=== PATIENT | female | born 1975 | race Caucasian/White ===

== ENCOUNTER 2018-07-14 11:48 | Emergency (ER) | payer OTHER, MEDICAID ==
[~2018-07-14] VITALS: Ht 160 cm; Wt 88.9 kg
[2018-07-14] MEDS ORDERED: PHENERGAN 25 MG25 M1 PO ×2 (11:56→14:09)
[2018-07-14 12:20] LABS: ABSOLUTE BASOPHILS 0.1 thou/uL (0.0-0.2); ABSOLUTE EOSINOPHILS 0.1 thou/uL (0.0-0.7); ABSOLUTE MONOCYTES 0.5 thou/uL (0.0-1.2); ABSOLUTE NEUTROPHILS 12.7 thou/uL (1.6-8.1); BASOPHILS 0.6 %; EOSINOPHILS 0.6 %; HEMATOCRIT 46.3 % (37.0-47.0); HEMOGLOBIN 15.8 gm/dL (12.0-15.0); LYMPHOCYTES 13.1 %; MCH 30.3 pg (26.0-34.0); MCHC 34.2 g/dL (28.0-37.0); MCV 88.7 fL (80.0-100.0); MONOCYTES 3.3 %; MPV 8.7 fl. (7.2-11.1); NUCLEATED RBCS 0 /100WBC; PLATELET COUNT* 286 thou/uL (150-400); POLYS 82.4 %; RBC 5.22 mil/uL (4.20-5.00); RDW-CV 12.8 % (10.5-14.5); WBC 15.5 thou/uL (4.0-11.0)
[2018-07-14 12:54] LABS: ALBUMIN 3.9 g/dL (3.4-5.0); ALKALINE PHOSPHATASE 95 U/L (46-116); ANION GAP 15 mmol/L (7-16); BUN 14 mg/dL (7-18); CALCIUM 9.1 mg/dL (8.5-10.1); CHLORIDE 107 mmol/L (98-107); CO2 23 mmol/L (21-32); CREATININE 1.1 mg/dL (0.6-1.3); GLUCOSE 154 mg/dL (70-99); LIPASE 104 U/L (73-393); POTASSIUM 4.5 mmol/L (3.5-5.1); SGOT 12 U/L (15-37); SGPT 17 U/L (30-65); SODIUM 145 mmol/L (136-145); TOTAL BILIRUBIN 0.3 mg/dL (<0.1-1.0); TOTAL PROTEIN 7.4 g/dL (6.4-8.2); TROPONIN-I LEVEL <0.06 ng/mL (<0.06)
[2018-07-14 13:07] LABS: INFLUENZA A ANTIGEN None Detected (None Detect); INFLUENZA B ANTIGEN None Detected (None Detect)
[2018-07-14] MEDS ORDERED: ULTRAM 50MG TAB50 MG PO (13:50)
[2018-07-14] MEDS ORDERED: ZOFRAN ODT4 MG SUBLING (13:50)
[2018-07-14] MEDS ORDERED: VISTARIL 25 MG25 M1 PO (13:50)
[2018-07-14] MEDS ORDERED: ZESTORETIC 20-1 EACH PO (14:00)
[2018-07-14 14:11] VITALS: BP 155/60
--- NOTE | 2018-07-14 16:52 | EKG ---
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1975 Requested By: Jesse Calderon Order Number: [id number] MD: Vahid Barros Measurements Intervals [place] Rate: 90 P: 7 ID: 153 QRS: 52 QRSD: 87 T: 30 QT: 385 QTc: 471 Interpretive Statements Sinus rhythm Low voltage, precordial leads Borderline repolarization abnormality Baseline wander in lead(s) I,II,III,aVR,aVL,aVF,V1,V2,V3 No previous ECG available for comparison Electronically Signed On 07-14-2018 16:52:27 CDT by Vahid Barros [email or web address] <ELECTRONICALLY SIGNED> By: Vahid Barros MD, FACC 07/14/18 1652 1200 1200 Vahid Barros MD, [facility] /EPI
== END 2018-07-14 14:12 | disposition home or self-care (01) ==
LOC: M.ERS 11:48
PROVIDERS: Family Medicine
DX: F41.9 Anxiety disorder, unspecified (principal); R11.2 Nausea with vomiting, unspecified; I10 Essential (primary) hypertension; Z86.73 Personal history of transient ischemic attack (TIA), and cerebral infarction without residual deficits

== ENCOUNTER 2019-03-03 23:14 | Emergency (ER) | payer OTHER, MEDICAID ==
[~2019-03-03] VITALS: Ht 160 cm; Wt 78.0 kg
[~2019-03-03 23:14] MED LIST: PHENERGAN 25 MG25 M1 PO; ULTRAM 50MG TAB50 MG PO; VISTARIL 25 MG25 M1 PO; ZESTORETIC 20-1 EACH PO; ZOFRAN ODT4 MG SUBLING
[2019-03-04 00:10] LABS: ABSOLUTE BASOPHILS 0.1 thou/uL (0.0-0.2); ABSOLUTE EOSINOPHILS 0.2 thou/uL (0.0-0.7); ABSOLUTE LYMPHOCYTES 3.5 thou/uL (0.8-5.3); ABSOLUTE MONOCYTES 0.5 thou/uL (0.0-1.2); ABSOLUTE NEUTROPHILS 4.2 thou/uL (1.6-8.1); EOSINOPHILS 2.5 %; HEMATOCRIT 42.9 % (37.0-47.0); HEMOGLOBIN 14.7 gm/dL (12.0-15.0); LYMPHOCYTES 41.6 %; MCH 30.1 pg (26.0-34.0); MCHC 34.3 g/dL (28.0-37.0); MCV 87.6 fL (80.0-100.0); MONOCYTES 5.4 %; MPV 7.6 fl. (7.2-11.1); NUCLEATED RBCS 0 /100WBC; PLATELET COUNT* 251 thou/uL (150-400); POLYS 49.5 %; RDW-CV 12.9 % (10.5-14.5); WBC 8.5 thou/uL (4.0-11.0)
[2019-03-04 00:19] LABS: CREATININE 0.9 mg/dL (0.6-1.3); POTASSIUM 3.7 mmol/L (3.5-5.1)
[2019-03-04 00:29] LABS: ALBUMIN 3.6 g/dL (3.4-5.0); TOTAL BILIRUBIN 0.4 mg/dL (<0.1-1.0); TOTAL PROTEIN 6.9 g/dL (6.4-8.2)
[2019-03-04] MEDS ORDERED: LISINOPRIL-HCT1 EACH PO (01:32)
[2019-03-04 02:11] LABS: AMP/METHAMP Negative (Negative); BARBITURATES Negative (Negative); BENZODIAZEPINES Negative (Negative); COCAINE Negative (Negative); METHADONE Negative (Negative); OPIATES Negative (Negative); PCP Negative (Negative); THC POSITIVE (Negative)
[2019-03-04] MEDS ORDERED: ZOFRAN ODT4 MG PO (02:26)
[2019-03-04 02:35] VITALS: BP 152/81
--- NOTE | 2019-03-04 15:50 | EKG ---
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 : 1975 Requested By: Sonam Parsons Order Number: [id number] MD: Vahid Barros Measurements Intervals [place] Rate: 88 P: 38 [place]: 177 QRS: 61 QRSD: 90 T: 38 QT: 383 QTc: 464 Interpretive Statements Sinus rhythm Borderline T abnormalities, anterior leads Compared to ECG 07/14/2018 12:00:42 T-wave abnormality now present Electronically Signed On 03-04-2019 15:49:42 MANAGER CARDIAC by Vahid Barros [email or web address] <ELECTRONICALLY SIGNED> By: Vahid Barros MD, [facility] 03/04/19 1549 21 21 Vahid Barros MD, FACC /EPI
== END 2019-03-04 02:35 | disposition home or self-care (01) ==
LOC: M.ERS 23:14
PROVIDERS: Personal Emergency Response Attendant
DX: I16.0 Hypertensive urgency (principal); R42 Dizziness and giddiness; I10 Essential (primary) hypertension; Z86.73 Personal history of transient ischemic attack (TIA), and cerebral infarction without residual deficits; Z79.899 Other long term (current) drug therapy

== ENCOUNTER 2020-01-28 12:50 | Inpatient (IN) | payer OTHER ==
[~2020-01-28] VITALS: Ht 160 cm; Wt 79.4 kg
--- NOTE | ~2020-01-28 | PROC ---
[facility] [address] [place] [address] PROCEDURE REPORT Name: ELSI LUNDBERG Room: [address] IN M.R.#: [id number] Admission: 01/28/20 Attend Phys: Parag Leavitt, Discharge: Date of : [birth year] Report #: [id number] THIS REPORT FOR: //name// cc: FAM - No family physician/PCP FAM - No family physician/PCP ~ THIS REPORT FOR: //name// For GI report, please see the Provation report in Perceptive 7 content. By: 1016Medical Records Staff GREGORIA /DEBORA
[~2020-01-28 12:50] MED LIST changes: +LISINOPRIL-HCT1 EACH PO; +ZOFRAN ODT4 MG PO
[2020-01-28 12:56] VITALS: BP 155/95
[2020-01-28] MEDS ORDERED: VISTARIL 25 MG25 M1 PO (12:57)
[2020-01-28 13:16] LABS: ABSOLUTE BASOPHILS 0.1 thou/uL (0.0-0.2); ABSOLUTE LYMPHOCYTES 2.7 thou/uL (0.8-5.3); ABSOLUTE MONOCYTES 0.9 thou/uL (0.0-1.2); ABSOLUTE NEUTROPHILS 14.2 thou/uL (1.6-8.1); BASOPHILS 0.8 %; EOSINOPHILS 0.1 %; HEMATOCRIT 47.8 % (37.0-47.0); HEMOGLOBIN 16.8 gm/dL (12.0-15.0); LYMPHOCYTES 15.2 %; MCH 31.6 pg (26.0-34.0); MCHC 35.2 g/dL (28.0-37.0); MONOCYTES 5.1 %; MPV 7.2 fl. (7.2-11.1); NUCLEATED RBCS 0 /100WBC; PLATELET COUNT* 388 thou/uL (150-400); POLYS 78.8 %; RBC 5.31 mil/uL (4.20-5.00); RDW-CV 14.1 % (10.5-14.5)
[2020-01-28 13:46] LABS: CREATININE 1.8 mg/dL (0.6-1.3); POTASSIUM 3.2 mmol/L (3.5-5.1)
[2020-01-28 13:57] LABS: ALBUMIN 4.4 g/dL (3.4-5.0); MAGNESIUM 2.1 mg/dL (1.8-2.4); TOTAL BILIRUBIN 0.7 mg/dL (<0.1-1.0); TOTAL PROTEIN 8.2 g/dL (6.4-8.2)
[2020-01-28 15:41] VITALS: BP 94/62
[2020-01-28 16:00] VITALS: BP 94/55
[2020-01-28 16:37] LABS: CALCIUM 9.9 mg/dL (8.5-10.1); CREATININE 1.9 mg/dL (0.6-1.3); POTASSIUM 3.2 mmol/L (3.5-5.1)
[2020-01-28 17:43] LABS: URINE BILIRUBIN NEGATIVE (Negative); URINE BLOOD NEGATIVE (Negative); URINE CLARITY CLEAR; URINE COLOR YELLOW; URINE GLUCOSE-RANDOM NEGATIVE (Negative); URINE KETONES NEGATIVE (Negative); URINE LEUKOCYTES-REFLEX NEGATIVE (Negative); URINE NITRITE-REFLEX NEGATIVE (Negative); URINE PROTEIN 2+ (Negative); URINE UROBILINOGEN 0.2 E.U./dl (0.2-1.0)
[2020-01-28 17:49] LABS: HYALINE CASTS 4-10 Moderate /LPF (None Seen); SQUAMOUS >10 Many /LPF (0-3)
[2020-01-28 17:50] LABS: BACTERIA-REFLEX 1-9 Few /HPF (None Seen); URINE WBC-REFLEX 0-5 Rare /HPF (0-5)
[2020-01-28 17:51] LABS: AMP/METHAMP Negative (Negative); BARBITURATES Negative (Negative); BENZODIAZEPINES Negative (Negative); COCAINE Negative (Negative); CRYSTALS None Seen /LPF (None Seen); METHADONE Negative (Negative); OPIATES Negative (Negative); PCP Negative (Negative); THC POSITIVE (Negative)
[2020-01-28 17:52] LABS: MUCUS None Seen strn/LPF (None Seen); URINE RBC None Seen /HPF (0-2)
[2020-01-28 20:00] VITALS: BP 100/60
[2020-01-29] VITALS: BP 99/52
[2020-01-29 04:00] VITALS: BP 98/60
[2020-01-29 07:30] VITALS: BP 94/58
[2020-01-29 07:52] LABS: MCH 31.4 pg (26.0-34.0); MCHC 34.8 g/dL (28.0-37.0); MCV 90.3 fL (80.0-100.0); MPV 6.8 fl. (7.2-11.1); RBC 4.1 mil/uL (4.20-5.00); RDW-CV 13.9 % (10.5-14.5); WBC 12.9 thou/uL (4.0-11.0)
[2020-01-29 07:56] LABS: HEMOGLOBIN 12.9 gm/dL (12.0-15.0)
[2020-01-29 08:04] LABS: ALBUMIN 3.2 g/dL (3.4-5.0); CALCIUM 7.6 mg/dL (8.5-10.1); CREATININE 1.4 mg/dL (0.6-1.3); PHOSPHORUS* 2.4 mg/dL (2.5-4.9); POTASSIUM 3.9 mmol/L (3.5-5.1); TOTAL BILIRUBIN 0.4 mg/dL (<0.1-1.0); TOTAL PROTEIN 5.9 g/dL (6.4-8.2)
[2020-01-29 11:57] VITALS: BP 113/78
--- NOTE | 2020-01-29 12:12 | EKG ---
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
[2020-01-29 16:06] VITALS: BP 98/71
[2020-01-29 20:00] VITALS: BP 117/74
[2020-01-30] VITALS: BP 105/73
[2020-01-30 04:00] VITALS: BP 100/53
[2020-01-30 05:11] LABS: MCH 31.9 pg (26.0-34.0); MCHC 35.1 g/dL (28.0-37.0); MCV 90.9 fL (80.0-100.0); MPV 7.1 fl. (7.2-11.1); RBC 4.07 mil/uL (4.20-5.00); RDW-CV 13.7 % (10.5-14.5); WBC 9.2 thou/uL (4.0-11.0)
[2020-01-30 05:48] LABS: ALBUMIN 3.2 g/dL (3.4-5.0); CALCIUM 7.9 mg/dL (8.5-10.1); CREATININE 1.2 mg/dL (0.6-1.3); MAGNESIUM 2.1 mg/dL (1.8-2.4); TOTAL BILIRUBIN 0.3 mg/dL (<0.1-1.0); TOTAL PROTEIN 5.7 g/dL (6.4-8.2)
[2020-01-30 08:00] VITALS: BP 126/84
[2020-01-30 16:58] VITALS: BP 153/89
[2020-01-30 19:30] VITALS: BP 142/84
[2020-01-31 00:39] VITALS: BP 127/96
[2020-01-31 05:25] LABS: HEMATOCRIT 36.2 % (37.0-47.0); HEMOGLOBIN 12.6 gm/dL (12.0-15.0); MCH 31.3 pg (26.0-34.0); MCHC 34.9 g/dL (28.0-37.0); MCV 89.5 fL (80.0-100.0); MPV 7.4 fl. (7.2-11.1); RBC 4.04 mil/uL (4.20-5.00); RDW-CV 13.8 % (10.5-14.5)
[2020-01-31 05:45] LABS: ALBUMIN 3.2 g/dL (3.4-5.0); CALCIUM 7.8 mg/dL (8.5-10.1); CREATININE 1.1 mg/dL (0.6-1.3); MAGNESIUM 1.9 mg/dL (1.8-2.4); POTASSIUM 3.7 mmol/L (3.5-5.1); TOTAL BILIRUBIN 0.4 mg/dL (<0.1-1.0); TOTAL PROTEIN 5.7 g/dL (6.4-8.2)
[2020-01-31 10:15] VITALS: BP 152/90
[2020-01-31 17:31] VITALS: BP 171/91
[2020-01-31 20:17] VITALS: BP 140/91
[2020-02-01 05:03] LABS: HEMATOCRIT 35.5 % (37.0-47.0); HEMOGLOBIN 12.5 gm/dL (12.0-15.0); MCH 31.5 pg (26.0-34.0); MCHC 35.1 g/dL (28.0-37.0); MCV 89.6 fL (80.0-100.0); MPV 7.7 fl. (7.2-11.1); RBC 3.96 mil/uL (4.20-5.00); RDW-CV 13.5 % (10.5-14.5); WBC 10.2 thou/uL (4.0-11.0)
[2020-02-01 05:30] LABS: BUN 17 mg/dL (7-18); CHLORIDE 108 mmol/L (98-107); HDL CHOLESTEROL 29 mg/dL (>40); POTASSIUM 3.9 mmol/L (3.5-5.1); TOTAL BILIRUBIN 0.3 mg/dL (<0.1-1.0); TOTAL PROTEIN 5.7 g/dL (6.4-8.2); TRIGLYCERIDE 133 mg/dL (<150); VLDL 27 mg/dL (<40)
[2020-02-01 05:31] LABS: ALBUMIN 3.2 g/dL (3.4-5.0); ALKALINE PHOSPHATASE 62 U/L (46-116); ANION GAP 7 mmol/L (7-16); CALCIUM 7.9 mg/dL (8.5-10.1); CHOLESTEROL 170 mg/dL (<200); CO2 27 mmol/L (21-32); CREATININE 1.2 mg/dL (0.6-1.3); GLUCOSE 111 mg/dL (70-99); LDL CHOLESTEROL 115 mg/dL (<100); SGOT 13 U/L (15-37); SGPT 30 U/L (30-65); SODIUM 142 mmol/L (136-145); TC:HDL 5.9 Ratio (Not establshd)
[2020-02-01 05:35] LABS: SERUM ASSESSMENT Clear
[2020-02-01 07:15] VITALS: BP 147/71
[2020-02-01] MEDS ORDERED: FISH OIL 1,0001 EAC9 PO (09:18)
[2020-02-01] MEDS ORDERED: PROTONIX40 M2 PO (09:18)
[2020-02-01] MEDS ORDERED: CO Q-10100 M1 PO (09:18)
[2020-02-01] MEDS ORDERED: ZESTRIL10 MG PO (09:18)
[2020-02-01] MEDS ORDERED: REGLAN 10 MG TA10 MG PO (09:18)
[2020-02-01 09:29] VITALS: BP 147/71
[2020-02-01] MEDS ORDERED: ERYTHROMYCIN250 M1 PO (10:36)
[2020-02-01] MEDS ORDERED: ATIVAN0.5 M1 PO ×2 (10:36→15:48)
--- NOTE | 2020-02-01 16:06 | PATH ---
[facility] [address] [place] [address] PATHOLOGY RPT PROCEDURE Name: ELSI HERNANDEZ Room: [address] IN .R.#: [id number] Admission: 01/28/20 Date of : [birth year] Discharge: 02/01/20 Report #: [id number] Path Case #: [id number] [facility] Accession Number: [id number] . 01 Material submitted: . small bowel - SMALL BOWEL BIOPSY FOR DIARRHEA . 01 Clinical history: . UNTRACTABLE VOMITING, CHEST PAIN . 02 Diagnosis: Small bowel biopsy: - Focal, superficial fresh hemorrhage in otherwise normal small intestinal mucosa. (BRENDA:denise; 02/01/2020) QMS 02/01/2020 1325 Local . 02 Electronically signed: . Tai Saucedo MD, Pathologist NPI- [id number] . 01 Gross description: . The specimen is received in formalin, labeled "Elsi Hernandez, small bowel biopsy for diarrhea". Received are three segments of pale kurtz soft tissue ranging in size from 0.4 to 0.6 cm in maximum dimensions. The specimen is submitted entirely in cassette A1. (CAA; 01/31/2020) QAC/QAC 01/31/2020 1010 Local . 02 Pathologist provided ICD-10: R11.10, R07.9 . 02 CPT . 950799 Specimen Comment: A courtesy copy of this report has been sent to [phone] Specimen Comment: [phone] Specimen Comment: Report sent to / DR ROSENBAUM Performed at: [address], [place] [id number] MD Corona uBrgos MD Phone: [phone] Performed at: 02 [facility] [address], [place], [place] [id number] MD Tai Saucedo MD Phone: [phone]
== END 2020-02-01 16:03 | disposition home or self-care (01) | DRG 391 ==
LOC: M.ERS 12:50 → M.2W 15:17 → M.TBA-ER 15:17 → M.2W 15:55 → M.ORTHSURG 01-31 19:38
PROVIDERS: Emergency Medicine Emergency Medical Services; Internal Medicine; ADMIT Family Medicine; ATTEND Family Medicine
PROC: 0DB78ZX Excision of Stomach, Pylorus, Via Natural or Artificial Opening Endoscopic, Diagnostic (ICD-10-PCS; principal; 2020-01-30)
PROC: 0DB98ZX Excision of Duodenum, Via Natural or Artificial Opening Endoscopic, Diagnostic (ICD-10-PCS; principal; 2020-01-30)
DX: K29.70 Gastritis, unspecified, without bleeding (principal); N17.0 Acute kidney failure with tubular necrosis; R65.10 Systemic inflammatory response syndrome (SIRS) of non-infectious origin without acute organ dysfunction; K31.84 Gastroparesis; K21.00 Gastro-esophageal reflux disease with esophagitis, without bleeding; I10 Essential (primary) hypertension; E86.0 Dehydration; E87.6 Hypokalemia; Z20.828 Contact with and (suspected) exposure to other viral communicable diseases; Z86.73 Personal history of transient ischemic attack (TIA), and cerebral infarction without residual deficits; Z82.49 Family history of ischemic heart disease and other diseases of the circulatory system; Z28.21 Immunization not carried out because of patient refusal

== ENCOUNTER 2020-07-18 18:49 | Observation (INO) | payer OTHER ==
[~2020-07-18] VITALS: Ht 160 cm; Wt 72.4 kg
[~2020-07-18 18:49] MED LIST changes: +ATIVAN0.5 M1 PO; +CO Q-10100 M1 PO; +ERYTHROMYCIN250 M1 PO; +FISH OIL 1,0001 EAC9 PO; +PROTONIX40 M2 PO; +REGLAN 10 MG TA10 MG PO; +ZESTRIL10 MG PO
[2020-07-18 18:54] VITALS: BP 196/102
[2020-07-18] MEDS ORDERED: REGLAN10 MG PO (19:02)
[2020-07-18 19:24] LABS: HEMATOCRIT 45.7 % (37.0-47.0); HEMOGLOBIN 15.4 gm/dL (12.0-15.0); MCH 29.9 pg (26.0-34.0); MCHC 33.8 g/dL (28.0-37.0); MCV 88.5 fL (80.0-100.0); MPV 7.4 fl. (7.2-11.1); NUCLEATED RBCS 0 /100WBC; PLATELET COUNT* 339 thou/uL (150-400); RBC 5.16 mil/uL (4.20-5.00); RDW-CV 14.1 % (10.5-14.5); WBC 17.1 thou/uL (4.0-11.0)
[2020-07-18 19:34] LABS: CALCIUM 9.7 mg/dL (8.5-10.1); CREATININE 1.1 mg/dL (0.6-1.3); POTASSIUM 3.6 mmol/L (3.5-5.1)
[2020-07-18 19:37] LABS: APTT 27.8 Seconds (25.0-31.3); PROTIME 10.6 Seconds (9.20-11.50)
[2020-07-18 19:48] LABS: ALBUMIN 4.4 g/dL (3.4-5.0); CK-MB MASS 0.5 ng/mL (<0.5-3.6); MAGNESIUM 1.9 mg/dL (1.8-2.4); TOTAL BILIRUBIN 0.5 mg/dL (<0.1-1.0); TOTAL PROTEIN 8.7 g/dL (6.4-8.2)
[2020-07-18 20:18] LABS: ABSOLUTE LYMPHOCYTES 1.9 thou/uL (0.8-5.3); ABSOLUTE MONOCYTES 0.7 thou/uL (0.0-1.2); ABSOLUTE NEUTROPHILS 14.5 thou/uL (1.6-8.1)
[2020-07-18 20:19] LABS: PLATELET ESTIMATE ADEQUATE
[2020-07-18 23:30] VITALS: BP 138/76
[2020-07-18 23:40] VITALS: BP 124/66
[2020-07-19 04:45] VITALS: BP 123/68
[2020-07-19 08:00] VITALS: BP 124/76
[2020-07-19] MEDS ORDERED: PHENERGAN 25 MG25 M1 PO (09:51)
[2020-07-19] MEDS ORDERED: ONDANSETRON HCL4 M2 PO (09:51)
--- NOTE | 2020-07-19 10:18 | EKG ---
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
[2020-07-19 14:34] VITALS: BP 124/76
== END 2020-07-19 15:16 | disposition home or self-care (01) ==
LOC: M.ERS 18:49 → M.TBA-ER 22:34 → M.2W 23:39
PROVIDERS: Family Medicine; ADMIT Family Medicine; ATTEND Family Medicine
DX: R11.2 Nausea with vomiting, unspecified (principal); R10.9 Unspecified abdominal pain; R79.0 Abnormal level of blood mineral; Z20.822 Contact with and (suspected) exposure to COVID-19; R07.89 Other chest pain; I16.0 Hypertensive urgency; Z88.5 Allergy status to narcotic agent; Z79.899 Other long term (current) drug therapy; Z86.73 Personal history of transient ischemic attack (TIA), and cerebral infarction without residual deficits

== ENCOUNTER 2020-09-23 17:45 | Inpatient (IN) | payer OTHER ==
[~2020-09-23] VITALS: Ht 160 cm; Wt 81.6 kg
[~2020-09-23 17:45] MED LIST changes: +ONDANSETRON HCL4 M2 PO; +REGLAN10 MG PO
[2020-09-23 17:54] VITALS: BP 163/102
[2020-09-23 18:20] LABS: HEMATOCRIT 45.8 % (37.0-47.0); HEMOGLOBIN 15.7 gm/dL (12.0-15.0); MCH 30.4 pg (26.0-34.0); MCHC 34.3 g/dL (28.0-37.0); MCV 88.7 fL (80.0-100.0); MPV 7.5 fl. (7.2-11.1); NUCLEATED RBCS 0 /100WBC; PLATELET COUNT* 366 thou/uL (150-400); RBC 5.17 mil/uL (4.20-5.00); RDW-CV 13.7 % (10.5-14.5); WBC 18.1 thou/uL (4.0-11.0)
[2020-09-23 18:42] LABS: ABSOLUTE LYMPHOCYTES 1.3 thou/uL (0.8-5.3); ABSOLUTE MONOCYTES 0.5 thou/uL (0.0-1.2); ABSOLUTE NEUTROPHILS 16.3 thou/uL (1.6-8.1); ALBUMIN 4.4 g/dL (3.4-5.0); CALCIUM 9.9 mg/dL (8.5-10.1); CREATININE 1.5 mg/dL (0.6-1.3); PLATELET ESTIMATE ADEQUATE; POTASSIUM 4.4 mmol/L (3.5-5.1); TOTAL BILIRUBIN 0.3 mg/dL (<0.1-1.0); TOTAL PROTEIN 8.3 g/dL (6.4-8.2)
[2020-09-23 21:05] LABS: URINE BILIRUBIN NEGATIVE (Negative); URINE BLOOD 1+ (Negative); URINE COLOR YELLOW; URINE GLUCOSE-RANDOM NEGATIVE (Negative); URINE KETONES TRACE (Negative); URINE LEUKOCYTES-REFLEX TRACE (Negative); URINE NITRITE-REFLEX NEGATIVE (Negative); URINE PROTEIN 3+ (Negative); URINE SPECIFIC GRAVITY 1.025 (1.005-1.030); URINE UROBILINOGEN 0.2 E.U./dl (0.2-1.0)
[2020-09-23 21:06] LABS: URINE CLARITY SL CLOUDY
[2020-09-23 21:23] LABS: AMP/METHAMP Negative (Negative); BARBITURATES Negative (Negative); BENZODIAZEPINES Negative (Negative); COCAINE Negative (Negative); METHADONE Negative (Negative); OPIATES Negative (Negative); PCP Negative (Negative); THC POSITIVE (Negative)
[2020-09-23 21:48] LABS: BACTERIA-REFLEX >30 Many /HPF (None Seen); CASTS None Seen /LPF (None Seen); CRYSTALS None Seen /LPF (None Seen); MUCUS 4-6 Moderate strn/LPF (None Seen); SQUAMOUS 4-10 Moderate /LPF (0-3); TRANSITIONAL EPITHEL CELL 0-3 Few /LPF (None Seen); URINE RBC 3-10 Few /HPF (0-2); URINE WBC-REFLEX 6-15 Few /HPF (0-5)
[2020-09-23 23:07] VITALS: BP 180/96
[2020-09-24 08:15] VITALS: BP 129/88
--- NOTE | 2020-09-24 10:57 | EKG ---
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
[2020-09-24 19:50] VITALS: BP 146/97
[2020-09-25 04:55] LABS: ABSOLUTE BASOPHILS 0.1 thou/uL (0.0-0.2); ABSOLUTE EOSINOPHILS 0.1 thou/uL (0.0-0.7); ABSOLUTE LYMPHOCYTES 3.8 thou/uL (0.8-5.3); ABSOLUTE MONOCYTES 0.5 thou/uL (0.0-1.2); ABSOLUTE NEUTROPHILS 6.2 thou/uL (1.6-8.1); BASOPHILS 1.1 %; EOSINOPHILS 1.3 %; HEMATOCRIT 35.8 % (37.0-47.0); LYMPHOCYTES 35.5 %; MCHC 34.4 g/dL (28.0-37.0); MCV 90.1 fL (80.0-100.0); MONOCYTES 4.7 %; MPV 7.4 fl. (7.2-11.1); NUCLEATED RBCS 0 /100WBC; POLYS 57.4 %; RBC 3.97 mil/uL (4.20-5.00); RDW-CV 13.6 % (10.5-14.5); WBC 10.8 thou/uL (4.0-11.0)
[2020-09-25 05:03] LABS: POTASSIUM 3.9 mmol/L (3.5-5.1)
[2020-09-25 05:09] LABS: CALCIUM 7.6 mg/dL (8.5-10.1)
[2020-09-25 05:13] LABS: HEMOGLOBIN 12.3 gm/dL (12.0-15.0); PLATELET COUNT* 232 thou/uL (150-400)
[2020-09-25 08:20] VITALS: BP 120/77
[2020-09-25 14:05] VITALS: BP 146/97
[2020-09-25 15:42] VITALS: BP 146/97
== END 2020-09-25 14:45 | disposition home or self-care (01) | DRG 641 ==
LOC: M.ERS 17:45 → M.TBA-ER 22:22 → M.ORTHSURG 22:56
PROVIDERS: Emergency Medicine Emergency Medical Services; Internal Medicine; ADMIT Internal Medicine; ATTEND Internal Medicine
DX: E86.0 Dehydration (principal); I10 Essential (primary) hypertension; F12.90 Cannabis use, unspecified, uncomplicated; F41.9 Anxiety disorder, unspecified; Z20.822 Contact with and (suspected) exposure to COVID-19; Z86.73 Personal history of transient ischemic attack (TIA), and cerebral infarction without residual deficits; Z90.49 Acquired absence of other specified parts of digestive tract; Z88.6 Allergy status to analgesic agent

== ENCOUNTER 2021-02-13 21:06 | Emergency (ER) | payer OTHER, MEDICAID ==
[~2021-02-13] VITALS: Ht 157.5 cm; Wt 81.7 kg
[2021-02-13 21:47] LABS: ABSOLUTE BASOPHILS 0.1 thou/uL (0.0-0.2); ABSOLUTE EOSINOPHILS 0.2 thou/uL (0.0-0.7); ABSOLUTE LYMPHOCYTES 3.5 thou/uL (0.8-5.3); ABSOLUTE MONOCYTES 0.6 thou/uL (0.0-1.2); ABSOLUTE NEUTROPHILS 5.6 thou/uL (1.6-8.1); BASOPHILS 0.9 %; EOSINOPHILS 1.6 %; HEMATOCRIT 40.9 % (37.0-47.0); HEMOGLOBIN 13.7 gm/dL (12.0-15.0); LYMPHOCYTES 34.9 %; MCH 30.1 pg (26.0-34.0); MCHC 33.6 g/dL (28.0-37.0); MCV 89.6 fL (80.0-100.0); MONOCYTES 5.6 %; MPV 7.6 fl. (7.2-11.1); NUCLEATED RBCS 0 /100WBC; PLATELET COUNT* 280 thou/uL (150-400); RBC 4.56 mil/uL (4.20-5.00); RDW-CV 13.6 % (10.5-14.5); WBC 9.9 thou/uL (4.0-11.0)
[2021-02-13 21:58] LABS: CALCIUM 8.6 mg/dL (8.5-10.1); CREATININE 1.2 mg/dL (0.6-1.3); POTASSIUM 3.7 mmol/L (3.5-5.1)
[2021-02-13 22:02] LABS: ALBUMIN 3.8 g/dL (3.4-5.0); TOTAL BILIRUBIN 0.4 mg/dL (<0.1-1.0); TOTAL PROTEIN 7.1 g/dL (6.4-8.2)
[2021-02-13] MEDS ORDERED: PHENERGAN 25 MG25 M1 PO (22:07)
[2021-02-13 22:56] VITALS: BP 120/70
--- NOTE | 2021-02-14 14:22 | EKG ---
[place] [address] ELECTROCARDIOGRAM REPORT Name: ELSI LUNDBERG Room: 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
== END 2021-02-13 22:58 | disposition home or self-care (01) ==
LOC: M.ERS 21:06
PROVIDERS: Nurse Practitioner Family
DX: R11.2 Nausea with vomiting, unspecified (principal); R19.7 Diarrhea, unspecified; I10 Essential (primary) hypertension; I25.2 Old myocardial infarction; Z86.73 Personal history of transient ischemic attack (TIA), and cerebral infarction without residual deficits; Z90.49 Acquired absence of other specified parts of digestive tract; Z79.899 Other long term (current) drug therapy; Z88.6 Allergy status to analgesic agent

== ENCOUNTER 2021-03-26 10:53 | Emergency (ER) | payer OTHER, MEDICAID ==
[~2021-03-26] VITALS: Ht 157.5 cm; Wt 81.7 kg
[2021-03-26 11:47] LABS: ABSOLUTE BASOPHILS 0.1 thou/uL (0.0-0.2); ABSOLUTE EOSINOPHILS 0.2 thou/uL (0.0-0.7); ABSOLUTE LYMPHOCYTES 2.4 thou/uL (0.8-5.3); ABSOLUTE MONOCYTES 0.4 thou/uL (0.0-1.2); ABSOLUTE NEUTROPHILS 7.9 thou/uL (1.6-8.1); EOSINOPHILS 1.4 %; HEMATOCRIT 43.7 % (37.0-47.0); HEMOGLOBIN 14.8 gm/dL (12.0-15.0); LYMPHOCYTES 21.6 %; MCH 30.3 pg (26.0-34.0); MCHC 33.8 g/dL (28.0-37.0); MCV 89.5 fL (80.0-100.0); MONOCYTES 3.5 %; MPV 7.5 fl. (7.2-11.1); NUCLEATED RBCS 0 /100WBC; PLATELET COUNT* 282 thou/uL (150-400); POLYS 72.5 %; RBC 4.88 mil/uL (4.20-5.00); RDW-CV 13.4 % (10.5-14.5); WBC 10.9 thou/uL (4.0-11.0)
[2021-03-26 12:04] LABS: CALCIUM 9.1 mg/dL (8.5-10.1); CREATININE 1.1 mg/dL (0.6-1.3); POTASSIUM 4.2 mmol/L (3.5-5.1)
[2021-03-26 12:07] LABS: MAGNESIUM 1.9 mg/dL (1.8-2.4); TOTAL BILIRUBIN 0.3 mg/dL (<0.1-1.0); TOTAL PROTEIN 7.2 g/dL (6.4-8.2)
[2021-03-26] MEDS ORDERED: CARAFATE1 GM PO (14:19)
[2021-03-26] MEDS ORDERED: PROMS25 WY RECTAL (14:19)
[2021-03-26 14:45] VITALS: BP 125/85
--- NOTE | 2021-03-27 14:13 | EKG ---
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 : 1975 Requested By: Jose Hernandez Order Number: [id number] MD: Vahid Barros Measurements Intervals [place] Rate: 83 P: -10 [place]: 162 QRS: 65 QRSD: 98 T: 48 QT: 380 QTc: 447 Interpretive Statements Sinus rhythm Low voltage, precordial leads Compared to ECG 02/13/2021 21:29:44 Low QRS voltage now present Inferior Q waves no longer present Q waves no longer present Electronically Signed On 03-27-2021 14:13:29 BOOK SOLICITOR by Vahid Barros [email or web address] <ELECTRONICALLY SIGNED> By: Vahid Barros MD, [facility] 03/27/21 1413 1057 1057 Vahid Barros MD, [facility] /EPI
== END 2021-03-26 14:45 | disposition home or self-care (01) ==
LOC: M.ERS 10:53
PROVIDERS: Emergency Medicine Emergency Medical Services
DX: R07.89 Other chest pain (principal); R10.13 Epigastric pain; I10 Essential (primary) hypertension; Z90.49 Acquired absence of other specified parts of digestive tract; Z79.899 Other long term (current) drug therapy; Z88.5 Allergy status to narcotic agent